=== PATIENT | male | born 1955 | race Caucasian/White ===

== ENCOUNTER 2017-07-12 03:01 | Emergency (ER) | payer BC ==
[~2017-07-12] VITALS: Ht 188 cm; Wt 85.8 kg
[2017-07-12] MEDS ORDERED: IBUPROFEN 600 MG TABLET. PO ONE (04:30)
[2017-07-12] MEDS ORDERED: ACETAMINOPHEN 325 MG TABLET. PO ONE (04:30)
[2017-07-12] MEDS ORDERED: AZITHROMYCIN 250 MG TABLET. PO ONE (04:30)
[2017-07-12 04:40] LABS: OBC FLU VALID
[2017-07-12] MEDS ORDERED: IBUP-1007 PO (04:40)
[2017-07-12] MEDS ORDERED: AZIT250T PO (04:40)
--- NOTE | 2017-07-12 04:40 | PHYS DOC ---
Past Medical History Past Medical History: Glaucoma Past Surgical History: No Surgical History Alcohol Use: Occasionally Drug Use: None Adult General Chief Complaint Chief Complaint: Congestion HPI HPI Patient is a 62 year old gentleman who has no past medical history presents here today complaining of a nonproductive cough times one day. Patient has any fevers shakes chills dysuria frequency urgency nausea vomiting or diarrhea. 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 Patient reports she took some Mucinex which she thinks resulted in diarrhea times one episode. Patient denies any high blood pressure diabetes liver longer kidney problems patient does not smoke drink or do drugs. Patient is in no surgeries. He is allergic to any medications. Review of systems: Constitutional: Denies fever or chills Eyes: Denies change in visual acuity, redness, or eye pain HENT: Denies nasal congestion or sore throat All other systems were reviewed and found to be within normal limits, except as documented in this note. Physical exam Constitutional: Well developed, well nourished, no acute distress, non-toxic appearance. HENT: Normocephalic, atraumatic, bilateral external ears normal, oropharynx moist, no oral exudates, nose normal. Eyes: PERRLA, EOMI, conjunctiva normal, no discharge. Neck: Normal range of motion, no tenderness, supple, no stridor. Cardiovascular:Heart rate regular rhythm, Lungs & Thorax: Bilateral breath sounds clear to auscultation Abdomen: Nondistended. Skin: Warm, dry, no erythema, no rash. Back: No tenderness, no CVA tenderness. Extremities: No tenderness, no cyanosis, no clubbing, ROM intact, no edema. Neurologic: Alert and oriented X 3, normal motor function, normal sensory function, no focal deficits noted. Psychologic: Affect normal, judgement normal, mood normal. ER physical exam is significant for: Lungs clear without any wheezing rales or rhonchi Chest x-ray was clear without any infiltrates or effusions. Influenza test negative for infants a repeat. Assessment and plan: 1. 62-year-old gentleman who presents here today with sinus symptoms consistent with bronchitis versus early pneumonia. Patient be started on a Z-Basil and will be instructed to follow-up with primary care physician. Patient is clinically and hemodynamically stable. Patient's chest x-ray was unremarkable. His influenza test was negative. Patient's pulse ox is 99% on room air which is normal. Patient be discharged home in stable condition. Current Medications Current Medications Current Medications Medications (Trade) Dose Ordered Sig/Jalyn Start Time Stop Time Status Last Admin Dose Admin Acetaminophen (Tylenol) 650 mg 1X ONCE 07/12/17 04:30 07/12/17 04:31 DC 07/12/17 04:27 650 MG Azithromycin (Zithromax) 500 mg 1X ONCE 07/12/17 04:30 07/12/17 04:31 DC 07/12/17 04:28 500 MG Ibuprofen (Motrin) 600 mg 1X ONCE 07/12/17 04:30 07/12/17 04:31 DC 07/12/17 04:28 600 MG Allergies Allergies Allergies Coded Allergies Type Severity Reaction Last Updated Verified No Known Drug Allergies 07/12/17 No Current Patient Data Vital Signs Vital Signs Date Time Temp Pulse Resp B/P (MAP) Pulse Ox O2 Delivery O2 Flow Rate FiO2 07/12/17 03:33 98.4 57 22 98 Room Air 98.4 EKG EKG [] Radiology/Procedures Radiology/Procedures [] Course & Med Decision Making Course & Med Decision Making Pertinent Labs and Imaging studies reviewed. (See chart for details) [] Dragon Disclaimer Dragon Disclaimer This electronic medical record was generated, in whole or in part, using a voice recognition dictation system. Departure Departure Impression: Primary Impression: Bronchitis Disposition: 01 HOME, SELF-CARE Condition: IMPROVED Referrals: BALJEET DESHPANDE MD (PCP) Patient Instructions: Acute Bronchitis Scripts Azithromycin (ZITHROMAX) 250 Mg Tablet 1 PKG PO UD, #6 TAB Prov: ASHLI SPIVEY MD 07/12/17 Ibuprofen (IBUPROFEN) 600 Mg Tablet 600 MG PO PRN Q6HRS Y for PAIN, #20 TAB Prov: ASHLI SPIVEY MD 07/12/17 ASHLI SPIVEY MD Jul 12, 2017 04:40
[2017-07-12 04:45] VITALS: BP 156/78
--- NOTE | 2017-07-12 09:16 | RAD ---
PA AND LATERAL CHEST RADIOGRAPH Clinical Indication: congestion. Comparison: None. Findings: The cardiomediastinal silhouette is normal. Pulmonary vasculature is normal. The lungs are clear. No pleural effusion or pneumothorax is seen. There is no acute bone abnormality. Degenerative endplate spurring in the thoracic spine. IMPRESSION: No acute cardiopulmonary process.
== END 2017-07-12 04:45 | disposition home or self-care (01) ==
LOC: ER 03:01
DX: J40 Bronchitis, not specified as acute or chronic (principal); H40.9 Unspecified glaucoma
CPT/HCPCS: 71020; 87804; 99285; Q0144